=== PATIENT | male | born 1985 | race African-American/Black ===

== ENCOUNTER 2018-11-15 12:25 | Emergency (ER) | payer SELFPAY ==
[~2018-11-15] VITALS: Ht 188 cm; Wt 95.3 kg
[2018-11-15 12:25] VITALS: BP_SYST 125; BP_SYST 132; BP_DIAS 80; BP_DIAS 86
--- NOTE | 2018-11-15 12:25 | NUR ---
ED Nurse Note: Patient brought in by [facility] from home c/o possible overdose, EMS states that the patient took 5 dexoamps, at time of arrival patient is arousable and answers to some questions, IV started on right AC 20 gauge, patient complains of no distress at this time however presents with reddened eyes, will continue to monitor
--- NOTE | 2018-11-15 12:30 | NUR ---
patient is confused and combative escorted by [employer] . patient has been placed on 5150 by [facility] .
[2018-11-15] MEDS ORDERED: LORazepam Inj 2mg/ml 1ml IM ONE (13:00)
[2018-11-15] MEDS ORDERED: DiphenhydrAMINE 50mg/ml Inj IVP ONE (13:00)
[2018-11-15] MEDS ORDERED: Haloperidol 5mg/ml Inj IM ONE (13:00)
--- NOTE | 2018-11-15 13:00 | NUR ---
sitter at bedside(prashanth)
[2018-11-15 13:08] LABS: BASOPHILS % (AUTO) 0.7 % (0.0-2.0); EOSINOPHILS % (AUTO) 0.4 % (0.0-3.0); HEMATOCRIT 53.4 % (42.0-52.0); HEMOGLOBIN 17.1 G/DL (14.2-18.0); LYMPHOCYTES % (AUTO) 23.2 % (20.0-45.0); MEAN CORPUSCULAR VOLUME 92 FL (80-99); MONOCYTES % (AUTO) 10.6 % (1.0-10.0); NEUTROPHILS % (AUTO) 65.1 % (45.0-75.0); PLATELET COUNT 182 K/UL (150-450); RED BLOOD COUNT 5.83 M/UL (4.70-6.10); RED CELL DISTRIBUTION WIDTH 12.4 % (11.6-14.8); WHITE BLOOD COUNT 7.7 K/UL (4.8-10.8)
[2018-11-15 13:30] LABS: ANION GAP 12 mmol/L (5-15); BLOOD UREA NITROGEN 8 mg/dL (7-18); CARBON DIOXIDE 26 MMOL/L (21-32); CHLORIDE 104 MMOL/L (98-107); CREATININE 1.2 MG/DL (0.55-1.30); POTASSIUM 4.8 MMOL/L (3.5-5.1); SODIUM 142 MMOL/L (136-145)
[2018-11-15 13:34] LABS: ALANINE AMINOTRANSFERASE 33 U/L (12-78); ALBUMIN 4.4 G/DL (3.4-5.0); ALBUMIN/GLOBULIN RATIO 1.2 (1.0-2.7); ALKALINE PHOSPHATASE 62 U/L (46-116); ASPARTATE AMINO TRANSFERASE 31 U/L (15-37); BILIRUBIN,TOTAL 0.6 MG/DL (0.2-1.0)
--- NOTE | 2018-11-15 13:37 | NUR ---
Called poison control, spoke to Yissel.
[2018-11-15 15:32] VITALS: BP 118/79
--- NOTE | 2018-11-15 15:32 | Emergency Room Report ---
History of Present Illness General Chief Complaint: Overdose Source: Patient, [employer] Present Illness HPI 32-year-old male presents ED for evaluation. Brought in by EMS for reported overdose. Per [employer] patient took 5 of his Adderall tablets in order to hurt himself today. Patient told [employer] that he was suicidal. Patient denies any SI here. Not providing any additional history at this time. Family states there is a history of psychiatric problems. No other aggravating relieving factors. No other associated symptoms Allergies: Coded Allergies: No Known Allergies (Unverified , 11/15/18) Patient History Past Medical History: psych hx Past Surgical History: none Pertinent Family History: none Social History: Reports: drug use Reviewed Nursing Documentation: PMH: Agreed; PSxH: Agreed Review of Systems All Other Systems: negative except mentioned in HPI Physical Exam Vital Signs Date Time Temp Pulse Resp B/P (MAP) Pulse Ox O2 Delivery O2 Flow Rate FiO2 11/15/18 12:19 84 18 132/86 (101) 96 Room Air 11/15/18 12:25 98.4 Sp02 EP Interpretation: reviewed, normal General Appearance: no apparent distress, alert, GCS 15, non-toxic Head: normocephalic, atraumatic Eyes: bilateral eye normal inspection, bilateral eye PERRL ENT: hearing grossly normal, normal pharynx, no angioedema, normal voice Neck: full range of motion, supple/symm/no masses Respiratory: chest non-tender, lungs clear, normal breath sounds, speaking full sentences Cardiovascular #1: regular rate, rhythm, no edema Cardiovascular #2: 2+ carotid (R), 2+ carotid (L), 2+ radial (R), 2+ radial (L) , 2+ dorsalis pedis (R), 2+ dorsalis pedis (L) Gastrointestinal: normal bowel sounds, non tender, soft, non-distended, no guarding, no rebound Rectal: deferred Genitourinary: normal inspection, no CVA tenderness Musculoskeletal: back normal, gait/station normal, normal range of motion, non- tender Neurologic: alert, oriented x3, responsive, motor strength/tone normal, sensory intact, speech normal Psychiatric: judgement/insight normal, memory normal, mood/affect normal, no suicidal/homicidal ideation, depressed affect, anxious Reflexes: 3+ bicep (R), 3+ bicep (L), 3+ tricep (R), 3+ tricep (L), 3+ knee (R) , 3+ knee (L) Lymphatic: no adenopathy Medical Decision Making Diagnostic Impression: Primary Impression: Drug overdose Qualified Codes: T50.902A - Poisoning by unspecified drugs, medicaments and biological substances, intentional self-harm, initial encounter ER Course Hospital Course 32-year-old male presents to ED for suicidal ideation. took 5 tablets of adderal Differential diagnoses include: Major depressive disorder, unspecified psychosis , EtOH abuse, drug abuse Clinical course Patient placed on stretcher. On one to one observation. After initial history and physical I ordered labs, EKG, U. tox Labs-electrolytes normal, aspirin/Tylenol levels normal, EtOH level normal, U. tox + THC. ETOH 72 Patient is medically cleared and pending psychiatric evaluation. i. I feel this is a highly complex case requiring extensive working including EKG/Rhythm strip, Xray/CT/US, Blood/urine lab work, repeat exams while in ED, and administration of strong opiates/narcotics for pain control, admission to hospital or close patient follow up. Labs Test 11/15/18 12:45 11/15/18 14:50 White Blood Count 7.7 K/UL (4.8-10.8) Red Blood Count 5.83 M/UL (4.70-6.10) Hemoglobin 17.1 G/DL (14.2-18.0) Hematocrit 53.4 % (42.0-52.0) Mean Corpuscular Volume 92 FL (80-99) Mean Corpuscular Hemoglobin 29.4 PG (27.0-31.0) Mean Corpuscular Hemoglobin Concent 32.1 G/DL (32.0-36.0) Red Cell Distribution Width 12.4 % (11.6-14.8) Platelet Count 182 K/UL (150-450) Mean Platelet Volume 8.1 FL (6.5-10.1) Neutrophils (%) (Auto) 65.1 % (45.0-75.0) Lymphocytes (%) (Auto) 23.2 % (20.0-45.0) Monocytes (%) (Auto) 10.6 % (1.0-10.0) Eosinophils (%) (Auto) 0.4 % (0.0-3.0) Basophils (%) (Auto) 0.7 % (0.0-2.0) Sodium Level 142 MMOL/L (136-145) Potassium Level 4.8 MMOL/L (3.5-5.1) Chloride Level 104 MMOL/L (98-107) Carbon Dioxide Level 26 MMOL/L (21-32) Anion Gap 12 mmol/L (5-15) Blood Urea Nitrogen 8 mg/dL (7-18) Creatinine 1.2 MG/DL (0.55-1.30) Estimat Glomerular Filtration Rate > 60 mL/min (>60) Glucose Level 77 MG/DL (74-106) Calcium Level 9.0 MG/DL (8.5-10.1) Total Bilirubin 0.6 MG/DL (0.2-1.0) Aspartate Amino Transf (AST/SGOT) 31 U/L (15-37) Alanine Aminotransferase (ALT/SGPT) 33 U/L (12-78) Alkaline Phosphatase 62 U/L (46-116) Total Protein 8.2 G/DL (6.4-8.2) Albumin 4.4 G/DL (3.4-5.0) Globulin 3.8 g/dL Albumin/Globulin Ratio 1.2 (1.0-2.7) Salicylates Level 2.0 ug/mL (2.8-20) Acetaminophen Level < 2 MCG/ML (10-30) Serum Alcohol 72 mg/dL Urine Opiates Screen Negative (NEGATIVE) Urine Barbiturates Screen Negative (NEGATIVE) Phencyclidine (PCP) Screen Negative (NEGATIVE) Urine Amphetamines Screen Negative (NEGATIVE) Urine Benzodiazepines Screen Negative (NEGATIVE) Urine Cocaine Screen Negative (NEGATIVE) Urine Marijuana (THC) Screen Positive (NEGATIVE) EKG Diagnostic Results Rate: normal Rhythm: NSR ST Segments: no acute changes ASA given to the pt in ED: No Rhythm Strip Diag. Results EP Interpretation: yes Rhythm: NSR, no PVC's, no ectopy Last Vital Signs Date Time Temp Pulse Resp B/P (MAP) Pulse Ox O2 Delivery O2 Flow Rate FiO2 11/15/18 12:25 84 18 Room Air 11/15/18 12:25 98.4 132/86 96 Status: improved Disposition: XFER TO PSYCH HOSP/UNIT Condition: Serious Referrals: NOT CHOSEN IPA/MD,REFERRING (PCP) Nick Vasquez MD Nov 15, 2018 15:32
--- NOTE | 2018-11-15 16:00 | NUR ---
ED Nurse Note: Patient had an agitated episode to which he yelled at staff that he did not want to be here. Security has been contacted.
[2018-11-15 16:13] LABS: CREATINE KINASE 598 U/L (26-308)
--- NOTE | 2018-11-15 16:25 | NUR ---
ED Nurse Note: Patient has calmed down and is resting in bed. will order a food tray.
--- NOTE | 2018-11-15 17:22 | NUR ---
dr salinas has been contacted will see patient tomorrow
--- NOTE | 2018-11-15 18:08 | NUR ---
ED Nurse Note: Patient in bed, in no distress
--- NOTE | 2018-11-15 19:15 | NUR ---
HAND-OFF: Report given to [employer] [place].
[2018-11-15 19:17] VITALS: BP 120/84
--- NOTE | 2018-11-15 19:17 | NUR ---
ED Nurse Note: report received from [employer] [place] pt is in bed with eyes closed. appears to be sleeping. VSS
[2018-11-15 19:30] VITALS: BP 120/84
--- NOTE | 2018-11-15 19:50 | NUR ---
ED Nurse Note: report given to Malou Lambert RN
[2018-11-15 23:30] VITALS: BP_SYST 125; BP_SYST 128; BP_DIAS 77; BP_DIAS 79
--- NOTE | 2018-11-16 00:05 | NUR ---
ED Nurse Note: Pt resting with eyes closed, non-labored breathing, no signs of distress, nourishment offered.
[2018-11-16 02:38] VITALS: BP 132/80
--- NOTE | 2018-11-16 07:09 | NUR ---
ED Nurse Note: Pt's medication in lock box in med room #[id number].
[2018-11-16 07:30] VITALS: BP 135/76
--- NOTE | 2018-11-16 07:32 | NUR ---
ED Nurse Note: Lawrence as sitter at the bed side. Breakfast tray provided.
--- NOTE | 2018-11-16 08:50 | NUR ---
ED Nurse Note: Pt is ambulating on the ER lobby and yells at ED staff. Pt states that he wants to leave and nobody can put him on hold. Sitter following pt. Primary RN called Security staff. ER MD and ER charge nurse aware. IV access removed.
--- NOTE | 2018-11-16 09:00 | NUR ---
ED Nurse Note: Pt came back to his room. Calm at this time but crying. SitDe Oliveira at the bed side.
--- NOTE | 2018-11-16 09:59 | NUR ---
ED Nurse Note: Dr Wheat at the bed side for evaluation.
[2018-11-16] MEDS ORDERED: LEXAPRO10 MG ORAL (10:14)
--- NOTE | 2018-11-16 10:15 | NUR ---
ED Nurse Note: Dr Wheat lifted the pt's hold and is okay to discharge patient. ER MD and charge nurse made aware.
[2018-11-16 10:27] VITALS: BP 127/82
--- NOTE | 2018-11-16 10:27 | NUR ---
ER DISCHARGE NOTE: Patient is cleared to be discharged per ERMD, pt is aox4, on room air, with stable vital signs. pt was given dc and prescription instructions and mental health referral list provided, pt was able to verbalize understanding, Medication dexoamps returned to patient. pt id band and iv site removed without complications. pt is able to ambulate with steady gait. pt took all belongings.
--- NOTE | 2018-11-16 10:27 | NUR ---
Note maliamarilee in EDM - 11/16/18 at 1032 by CYNTHIA ER DISCHARGE NOTE: Patient is cleared to be discharged per ERMD, pt is aox4, on room air, with stable vital signs. pt was given dc and prescription instructions, pt was able to verbalize understanding, Medication dexoamps returned to patient. pt id band and iv site removed without complications. pt is able to ambulate with steady gait. pt took all belongings.
--- NOTE | 2018-11-16 10:37 | Emergency Room Report ---
Physical Exam Vital Signs Date Time Temp Pulse Resp B/P (MAP) Pulse Ox O2 Delivery O2 Flow Rate FiO2 11/15/18 12:19 84 18 132/86 (101) 96 Room Air 11/15/18 12:25 98.4 Medical Decision Making Diagnostic Impression: Primary Impression: Drug overdose Qualified Codes: T50.902A - Poisoning by unspecified drugs, medicaments and biological substances, intentional self-harm, initial encounter ER Course patient medically cleared for psychiatric clearance. during ED course patient maintains he is not suicidal. based on my assessment, I do not believe patient is danger to self or others evaluated by Dr Wheat (psychiatry) at bedside. she agrees that patient is not danger to self/others. patient can be discharged with Rx Lexapro, referrals to outpatient psychiatric facility Labs Test 11/15/18 12:45 11/15/18 14:50 White Blood Count 7.7 K/UL (4.8-10.8) Red Blood Count 5.83 M/UL (4.70-6.10) Hemoglobin 17.1 G/DL (14.2-18.0) Hematocrit 53.4 % (42.0-52.0) Mean Corpuscular Volume 92 FL (80-99) Mean Corpuscular Hemoglobin 29.4 PG (27.0-31.0) Mean Corpuscular Hemoglobin Concent 32.1 G/DL (32.0-36.0) Red Cell Distribution Width 12.4 % (11.6-14.8) Platelet Count 182 K/UL (150-450) Mean Platelet Volume 8.1 FL (6.5-10.1) Neutrophils (%) (Auto) 65.1 % (45.0-75.0) Lymphocytes (%) (Auto) 23.2 % (20.0-45.0) Monocytes (%) (Auto) 10.6 % (1.0-10.0) Eosinophils (%) (Auto) 0.4 % (0.0-3.0) Basophils (%) (Auto) 0.7 % (0.0-2.0) Sodium Level 142 MMOL/L (136-145) Potassium Level 4.8 MMOL/L (3.5-5.1) Chloride Level 104 MMOL/L (98-107) Carbon Dioxide Level 26 MMOL/L (21-32) Anion Gap 12 mmol/L (5-15) Blood Urea Nitrogen 8 mg/dL (7-18) Creatinine 1.2 MG/DL (0.55-1.30) Estimat Glomerular Filtration Rate > 60 mL/min (>60) Glucose Level 77 MG/DL (74-106) Calcium Level 9.0 MG/DL (8.5-10.1) Total Bilirubin 0.6 MG/DL (0.2-1.0) Aspartate Amino Transf (AST/SGOT) 31 U/L (15-37) Alanine Aminotransferase (ALT/SGPT) 33 U/L (12-78) Alkaline Phosphatase 62 U/L (46-116) Total Creatine Kinase 598 U/L (26-308) Total Protein 8.2 G/DL (6.4-8.2) Albumin 4.4 G/DL (3.4-5.0) Globulin 3.8 g/dL Albumin/Globulin Ratio 1.2 (1.0-2.7) Salicylates Level 2.0 ug/mL (2.8-20) Acetaminophen Level < 2 MCG/ML (10-30) Serum Alcohol 72 mg/dL Urine Opiates Screen Negative (NEGATIVE) Urine Barbiturates Screen Negative (NEGATIVE) Phencyclidine (PCP) Screen Negative (NEGATIVE) Urine Amphetamines Screen Negative (NEGATIVE) Urine Benzodiazepines Screen Negative (NEGATIVE) Urine Cocaine Screen Negative (NEGATIVE) Urine Marijuana (THC) Screen Positive (NEGATIVE) Last Vital Signs Date Time Temp Pulse Resp B/P (MAP) Pulse Ox O2 Delivery O2 Flow Rate FiO2 11/16/18 10:27 98.2 84 16 127/82 99 Room Air Status: improved Disposition: HOME, SELF-CARE Condition: Stable Scripts Escitalopram Oxalate* (LEXAPRO*) 10 Mg Tablet 10 MG ORAL DAILY, #30 TAB Prov: Nick Vasquez MD 11/16/18 Referrals: [facility] + [facility] - Peds ER - Patient Instructions: Depression, Adult, [id number] iNck Vasquez MD Nov 16, 2018 10:37
--- NOTE | 2018-11-17 03:45 | Consultation ---
DATE OF CONSULTATION: 11/16/2018 CONSULTING PHYSICIAN: Hilario Wheat M.D. HISTORY OF PRESENT ILLNESS: This is a 32-year-old male with a history of major depressive disorder and cannabis dependence, who has been admitted to the hospital on a 5150. The patient actually told the friend that he took od of Adderall. When he came to the emergency room, the urine toxicology was only positive for THC. The patient was aggressive and at some point combative towards the staff, uncooperative, and requested to leave the hospital. The police brought him to the emergency room at [facility] and had to escalate him. He, at some point, was in leather restraints. Today he is requesting to leave the hospital. He is denying any suicidal or homicidal ideation. He stated that he has been having depression. He is and he stated that he has difficulties in the [place], he is from [place]. He has a girlfriend here as well as friends. His family are in [place]. The patient is not endorsing any psychotic or manic symptoms. He would like to be started on antidepressant. We discussed with him to follow up with a psychiatrist as an outpatient after discharge. PAST PSYCHIATRIC HISTORY: He denied any suicidal attempt. Denied any psychiatric hospitalizations. PAST MEDICAL HISTORY: Nonsignificant. ALLERGIES: No known drug allergies. SUBSTANCE ABUSE HISTORY: Cannabis. MENTAL STATUS EXAMINATION: The patient is alert and oriented times to self, place, situation, and date. Mood is irritable. Affect is blunted, congruent with mood. Thought process is linear and goal oriented. Thought content, no suicidal or homicidal ideations. No AVH. No delusions. Cognition is intact. Insight and judgment are fair. ASSESSMENT: AXIS I: Major depressive disorder. Cannabis dependence. AXIS II: Deferred. AXIS III: None. AXIS IV: Moderate. AXIS V: 55. PLAN: 1. We will start the patient on Lexapro 10 mg in the morning. 2. The patient will be given referral for outpatient psychiatrist followup. 3. The patient's 5150 will be discontinued. 4. The patient's girlfriend will be contacted. Hilario Wheat M.D. DR: BULL JOB#: [id number] CC: JACQUES
--- NOTE | 2018-11-17 15:16 | Cardiology Report ---
APPROVED REPORT EKG Measurement Heart [id number] Normal sinus rhythm Voltage criteria for left ventricular hypertrophy Abnormal ECG
== END 2018-11-16 10:27 | disposition home or self-care (01) ==
LOC: EDBD 12:25 → EMR 13:30
DX: F32.9 Major depressive disorder, single episode, unspecified (principal); F12.20 Cannabis dependence, uncomplicated; T50.901A Poisoning by unspecified drugs, medicaments and biological substances, accidental (unintentional), initial encounter; Y92.9 Unspecified place or not applicable
CPT/HCPCS: 36415; 80053; 80307; 82550; 85025; 93005; 96361; 96374; 99285; G0480; J2405; 80329